=== PATIENT | female | born 1975 | race Caucasian/White ===

== ENCOUNTER 2016-08-08 08:04 | Day surgery (SDC) | payer OTHER ==
[~2016-08-08 08:04] MED LIST: DICLOFENAC POTA50 M1 PO; DIOVAN160 M1 PO; FLOMAX0.4 M1 PO; NORCO 10-325 T1 EACH PO; NORVASC5 M2 PO; PROAIR HFA8.5 GM INH; SLOW RELEASE I142 M2 PO; SYNTHROID50 MC1 PO; VITAMIN D35000 UNI3 PO
[2016-08-08] MEDS ORDERED: PERCOCET 5-3251 EACH PO (20:41)
== END 2016-08-09 10:10 ==
LOC: WSU 08:04 → SHSC 08:07 → ORW 08:58 → PACU 10:27 → OBGF 11:18
PROC: 0UT94ZZ Resection of Uterus, Percutaneous Endoscopic Approach (ICD-10-PCS; principal; 2016-08-08)
PROC: 0UTC4ZZ Resection of Cervix, Percutaneous Endoscopic Approach (ICD-10-PCS; 2016-08-08)
PROC: 0UT74ZZ Resection of Bilateral Fallopian Tubes, Percutaneous Endoscopic Approach (ICD-10-PCS; 2016-08-08)
PROC: 8E0W4CZ Robotic Assisted Procedure of Trunk Region, Percutaneous Endoscopic Approach (ICD-10-PCS; 2016-08-08)
DX: D25.1 Intramural leiomyoma of uterus (principal); N88.8 Other specified noninflammatory disorders of cervix uteri; I10 Essential (primary) hypertension; E66.01 Morbid (severe) obesity due to excess calories; E78.5 Hyperlipidemia, unspecified; E03.9 Hypothyroidism, unspecified; J45.909 Unspecified asthma, uncomplicated; E55.9 Vitamin D deficiency, unspecified; Z79.899 Other long term (current) drug therapy; Z88.2 Allergy status to sulfonamides; Z88.8 Allergy status to other drugs, medicaments and biological substances; Z87.442 Personal history of urinary calculi; Z87.891 Personal history of nicotine dependence; Z90.49 Acquired absence of other specified parts of digestive tract; Z98.890 Other specified postprocedural states
CPT/HCPCS: J0690; J1170; J3010; J7030